=== PATIENT | male | born 1980 | race Caucasian/White ===

== ENCOUNTER → 2019-10-20 | Outpatient (REF) | payer BC ==
[~2019-10-20] MED LIST: PENT500C PO; ZITHTAB PO; amoxicillin PO
[2019-10-20 18:56] LABS: C REACTIVE PROTEIN QUANTITATIV 0.62 MG/DL (0.00-0.30)
== END ==
LOC: M LAB REF 17:46
PROVIDERS: ATTEND Family Medicine
DX: K50.00 Crohn's disease of small intestine without complications (principal); K62.5 Hemorrhage of anus and rectum

== ENCOUNTER → 2020-10-26 | Outpatient (REF) | payer BC ==
[2020-10-26 13:29] LABS: C REACTIVE PROTEIN QUANTITATIV 0.5 MG/DL (0.00-0.30)
== END ==
LOC: M LAB REF 12:13
PROVIDERS: ATTEND Family Medicine
DX: Z00.00 Encounter for general adult medical examination without abnormal findings (principal); K50.00 Crohn's disease of small intestine without complications

== ENCOUNTER → 2021-02-08 | Outpatient (CLI) | payer BC | LOC: M LABSMTC 11:28 | PROVIDERS: ATTEND Anesthesiology | DX: Z20.828 Contact with and (suspected) exposure to other viral communicable diseases (principal); Z11.59 Encounter for screening for other viral diseases ==

== ENCOUNTER 2021-02-13 09:46 | Day surgery (SDC) | payer BC ==
[~2021-02-13] VITALS: Ht 170.2 cm; Wt 75.7 kg
[~2021-02-13 09:46] MED LIST changes: +NS 1,000 ML IV ONE
[2021-02-13] MEDS ORDERED: LIDOCAINE 2% MDV 20ML VIAL As Ordered ONE (10:14)
[2021-02-13] MEDS ORDERED: propofoL 200 MG/20 ML VIAL As Ordered ONE ×2 (10:14→10:19)
--- NOTE | 2021-02-13 10:31 | ROOR ---
Patient Name: Nathan Candelaria Procedure Date: 02/13/2021 10:10 AM Date of : 1980 Age: 40 Room: [facility] Gender: Male Note Status: Finalized Procedure: Total Colonoscopy to Cecum + ileoscopy + Bx Indications: Abdominal pain in the right lower quadrant, Clinically significant diarrhea of unexplained origin Providers: Layton Rodriguez MD Referring MD: Jh Yanez MD Requesting Provider: Medicines: Monitored Anesthesia Care Complications: No immediate complications. Procedure: Pre-Anesthesia Assessment: - The heart rate, respiratory rate, oxygen saturations, blood pressure, adequacy of pulmonary ventilation, and response to care were monitored throughout the procedure. The Colonoscope was introduced through the anus and advanced to 10 cm into the ileum. The colonoscopy was performed without difficulty. The patient tolerated the procedure well. The quality of the bowel preparation was excellent. Findings: The perianal and digital rectal examinations were normal. Non-bleeding internal hemorrhoids were found during retroflexion. The hemorrhoids were small and Grade I (internal hemorrhoids that do not prolapse). No other significant abnormalities were identified in a careful examination of the remainder of the colon. The terminal ileum appeared normal. Biopsies for histology were taken with a cold forceps from the ascending colon, transverse colon, descending colon and rectosigmoid colon for evaluation of microscopic colitis. The exam was otherwise without abnormality on direct and retroflexion views. Impression: - Non-bleeding internal hemorrhoids. - The examined portion of the ileum was normal. Biopsied. - The examination was otherwise normal on direct and retroflexion views. - The exam was otherwise normal to the cecum. Recommendation: - Patient has a contact number available for emergencies. The signs and symptoms of potential delayed complications were discussed with the patient. Return to normal activities tomorrow. Written discharge instructions were provided to the patient. - High fiber diet. - Discharge patient to home. - Continue present medications. - Await pathology results. - Telephone GI clinic for pathology results in 1 week. - Repeat colonoscopy in 10 years for screening purposes. - Return to referring physician. - The findings and recommendations were discussed with the patient. Procedure Code(s): --- Professional --- 36567, Colonoscopy, flexible; with biopsy, single or multiple Diagnosis Code(s): --- Professional --- K64.0, First degree hemorrhoids R10.31, Right lower quadrant pain R19.7, Diarrhea, unspecified CPT copyright 2019 [employer]. All rights reserved. The codes documented in this report are preliminary and upon reactor kettle operator review may be revised to meet current compliance requirements. Layton Rodriguez MD Layton Rodriguez MD 02/13/2021 10:30:59 AM Electronically signed by Layton Rodriguez MD Number of Addenda: 0 Note Initiated On: 02/13/2021 10:10 AM Estimated Blood Loss: Estimated blood loss: none.
[2021-02-13 10:50] VITALS: BP 142/79
== END 2021-02-13 11:01 | disposition home or self-care (01) ==
LOC: M OPP 09:46
PROVIDERS: ATTEND Internal Medicine Gastroenterology
DX: R19.7 Diarrhea, unspecified (principal); K64.0 First degree hemorrhoids; R10.13 Epigastric pain; F17.210 Nicotine dependence, cigarettes, uncomplicated; Z80.0 Family history of malignant neoplasm of digestive organs

== ENCOUNTER → 2022-11-06 | Outpatient (REF) | payer OTHER ==
[~2022-11-06] MED LIST changes: -NS 1,000 ML IV ONE
== END ==
LOC: M LAB REF 16:17
PROVIDERS: ATTEND Family Medicine
DX: K50.00 Crohn's disease of small intestine without complications (principal)

== ENCOUNTER → 2023-11-09 | Outpatient (REF) | payer OTHER | LOC: M LAB REF 16:33 | PROVIDERS: ATTEND Family Medicine | DX: K50.00 Crohn's disease of small intestine without complications (principal) ==

== ENCOUNTER → 2024-11-11 | Outpatient (REF) | payer OTHER | LOC: M LAB REF 12:45 | PROVIDERS: ATTEND Family Medicine | DX: K50.00 Crohn's disease of small intestine without complications (principal) ==